=== PATIENT | female | born 1995 | race African-American/Black ===

== ENCOUNTER 2016-08-21 17:28 | Emergency (ER) | payer MEDICAID ==
[~2016-08-21] VITALS: Ht 157.5 cm; Wt 63.1 kg
[2016-08-21] MEDS ORDERED: INSU100V8 SQ (18:19)
[2016-08-21] MEDS ORDERED: INSU100C SQ-INSULIN (18:19)
[2016-08-21 18:40] LABS: BLOOD UREA NITROGEN 10 mg/dL (7-18)
[2016-08-21 19:02] LABS: ASPARTATE AMINO TRANSFERASE 24 U/L (15-37); DIFF TOTAL CELLS COUNTED 100 CELL DIFF
[2016-08-21 19:07] LABS: ANISOCYTOSIS 1+
[2016-08-21 19:08] LABS: VERIFY COUNTS? YES
[2016-08-21] MEDS ORDERED: FUROSEMIDE 40 MG/4 ML IV ONE (19:30)
[2016-08-21] MEDS ORDERED: INSULIN REGULAR 100 UNITS/ML, 3ML VIAL SQ-INSULIN ONE (19:30)
[2016-08-21] MEDS ORDERED: INSULIN SINGLE DOSE, ER SQ-INSULIN ONE (19:40)
[2016-08-21] MEDS ORDERED: FUROSEMIDE 40 MG TABLET PO ONE (20:00)
[2016-08-21] MEDS ORDERED: MIDAZOLAM 10MG/2 ML NAS ONE (22:00)
[2016-08-21 22:32] VITALS: BP 112/70
== END 2016-08-21 22:34 | disposition home or self-care (01) ==
LOC: ED 22:28
DX: R60.0 Localized edema (principal); B37.3 Candidiasis of vulva and vagina; E11.65 Type 2 diabetes mellitus with hyperglycemia
CPT/HCPCS: 36415; 80053; 81003; 82962; 83880; 84703; 85025; 93970; 96372